=== PATIENT | female | born 1990 | race Caucasian/White ===

== ENCOUNTER 2020-11-30 01:03 | Emergency (ER) | payer OTHER ==
--- NOTE | 2020-11-30 02:03 | EDM.PDOC ---
ED HPI GENERAL MEDICAL PROBLEM - General Chief Complaint: General Stated Complaint: palpitations Time Seen by Provider: 11/30/20 01:37 Source of Information: Reports: Patient History Limitations: Reports: No Limitations - History of Present Illness INITIAL COMMENTS - FREE TEXT/NARRATIVE: Patient presents with palpitations that started 2 weeks ago and has happened typically when sitting on the couch after getting home from work. Up to 2-3 times per night. No fainting, chest pain, lightheadedness, N/V. - Related Data Allergies Allergy/AdvReac Type Severity Reaction Status Date / Time Penicillins Allergy Cannot Verified 11/30/20 01:40 Remember Home Meds: Home Meds Acetaminophen 325 mg PO Q4H PRN 11/30/20 [History] Cimetidine 200 mg PO DAILY PRN 11/30/20 [History] Pantoprazole [ProTONIX] 40 mg PO QAM 11/30/20 [History] ED ROS GENERAL - Review of Systems Review Of Systems: See Below Constitutional: Denies: Fever, Chills, Malaise, Weakness, Fatigue HEENT: Denies: Ear Pain, Throat Pain, Vision Change Respiratory: Denies: Shortness of Breath, Cough Cardiovascular: Denies: Chest Pain, Lightheadedness, Syncope Endocrine: Denies: Fatigue GI/Abdominal: Denies: Abdominal Pain, Nausea, Vomiting : Denies: Dysuria, Flank Pain Musculoskeletal: Denies: Neck Pain, Shoulder Pain, Arm Pain, Back Pain, Hand Pain, Leg Pain Skin: Denies: Cyanosis, Jaundice, Mottled, Pallor, Diaphoresis Neurological: Denies: Confusion, Dizziness, Headache, Seizure, Syncope, Trouble Speaking, Difficulty Walking Psychiatric: Denies: Agitation, Confusion ED EXAM, GENERAL - Physical Exam Exam: See Below Exam Limited By: No Limitations General Appearance: Alert, WD/WN, No Apparent Distress Eye Exam: Bilateral Eye: EOMI, Normal Inspection, PERRL Ears: Normal External Exam, Hearing Grossly Normal Nose: Normal Inspection, No Blood Throat/Mouth: Normal Inspection, Normal Lips, Normal Voice, No Airway Compromise Head: Atraumatic, Normocephalic Neck: Normal Inspection, Supple, Non-Tender, Full Range of Motion Respiratory/Chest: No Respiratory Distress, Lungs Clear, Normal Breath Sounds Cardiovascular: Regular Rate, Rhythm, No Murmur Back Exam: Normal Inspection, Full Range of Motion. No: CVA Tenderness (L), CVA Tenderness (R) Extremities: Normal Inspection, Normal Range of Motion Neurological: Alert, Oriented, Normal Cognition, No Motor/Sensory Deficits Psychiatric: Normal Affect, Normal Mood Skin Exam: Warm, Dry, Intact, Normal Color, No Rash #1 Interpretation EKG Date: 11/30/20 Rhythm: NSR (with RSR' in V1) [place]: Normal P-Wave: Present QRS: Normal ST-T: Normal QT: Normal Course - Vital Signs Last Recorded V/S: Last Vital Signs Temp 95.8 F L 11/30/20 01:12 Pulse 89 11/30/20 01:12 Resp 11 L 11/30/20 01:12 BP 124/89 11/30/20 01:12 Pulse Ox 98 11/30/20 01:12 - Orders/Labs/Meds Orders: Active Orders 24 hr Category Date Time Status EKG Documentation Completion [RC] ASDIRECTED Care 11/30/20 01:20 Active EKG 12 Lead [EK] Stat Ther 11/30/20 01:20 Ordered - Re-Assessments/Exams Free Text/Narrative Re-Assessment/Exam: 11/30/20 02:06 EKG as above, showing NSR with RSR' in V1. I reviewed possible etiologies and this appears to be very likely a benign finding. Discussed findings with patient. She is feeling normal now. On the rhythm strip there was a single PVC captured while she was feeling palpitations. Advised follow up with her PCP for recheck and likely cardiology consult if this persists. Discharged to home in stable condition. Departure - Departure Time of Disposition: 01:58 Disposition: Home, Self-Care 01 Condition: Good Clinical Impression: Palpitations - Discharge Information Instructions: Palpitations, [id number] Referrals: Krystle Diaz MD [Physician] - Additional Instructions: Drink 8 cups of water daily. Follow up with your PCP within a week for recheck, sooner if worsening. Go to ER as needed if worsening. Sepsis Event Note (ED) - Evaluation Sepsis Screening Result: No Definite Risk - Focused Exam Vital Signs: Vital Signs Temp Pulse Resp BP Pulse Ox 11/30/20 01:12 95.8 F L 89 11 L 124/89 98 - My Orders Last 24 Hours: My Active Orders 11/30/20 01:20 EKG Documentation Completion [RC] ASDIRECTED EKG 12 Lead [EK] Stat - Assessment/Plan Last 24 Hours: My Active Orders 11/30/20 01:20 EKG Documentation Completion [RC] ASDIRECTED EKG 12 Lead [EK] Stat
== END 2020-11-30 02:14 | disposition home or self-care (01) ==
LOC: KA.ED 01:03 → SUPCPDRO 01:03 → KA.ED 02:14
DX: R00.2 Palpitations (principal); Z88.0 Allergy status to penicillin; Z79.899 Other long term (current) drug therapy
CPT/HCPCS: 93005; 99284; 99284-25